=== PATIENT | female | born 1955 | race Caucasian/White ===

== ENCOUNTER 2016-08-08 16:51 | Emergency (ER) | payer OTHER ==
[2016-08-08 16:58] VITALS: BMI 24.0
--- NOTE | 2016-08-08 17:08 | ED PDOC ---
Arrival/HPI - General Time Seen by Provider: 08/08/16 16:58 Historian: Patient - History of Present Illness Narrative History of Present Illness (Text): 08/08/16 19:22 This is a 60yo female [facility] [place] employee who present to ED for puncture wound. States she accidentally punctured her left arm with a syringe, while trying to restrain a patient with a medication. She notes that she is up to date with her TD booster. Denies any other complaint. Past Medical History - Provider Review Nursing Documentation Reviewed: Yes Family/Social History - Physician Review Nursing Documentation Reviewed: Yes Family/Social History: Unknown Family HX Allergies/Home Meds Allergies/Adverse Reactions: Allergies No Known Allergies Allergy (Verified 08/08/16 16:58) Review of Systems - Physician Review All systems were reviewed & negative as marked: Yes - Review of Systems Constitutional: Normal Eyes: Normal ENT: Normal Respiratory: Normal Cardiovascular: Normal Gastrointestinal: Normal Genitourinary Female: Normal Musculoskeletal: Normal Skin: Other (Puncture wound to left forearm) Neurological: Normal Endocrine: Normal Hemo/Lymphatic: Normal Psychiatric: Normal Physical Exam Vital Signs Reviewed: Yes Vital Signs Temp Pulse Resp BP Pulse Ox 08/08/16 17:56 16 98 08/08/16 17:21 98.2 F 86 16 107/74 95 Temperature: Afebrile Blood Pressure: Normal Pulse: Regular Respiratory Rate: Normal Appearance: Positive for: Well-Appearing, Non-Toxic, Comfortable Pain Distress: None Mental Status: Positive for: Alert and Oriented X 3 - Systems Exam Head: Present: Atraumatic, Normocephalic Pupils: Present: PERRL Extroacular Muscles: Present: EOMI Conjunctiva: Present: Normal Mouth: Present: Moist Mucous Membranes Neck: Present: Normal Range of Motion Respiratory/Chest: Present: Clear to Auscultation, Good Air Exchange. No: Respiratory Distress, Accessory Muscle Use Cardiovascular: Present: Regular Rate and Rhythm, Normal S1, S2. No: Murmurs Abdomen: Present: Normal Bowel Sounds. No: Tenderness, Distention, Peritoneal Signs Back: Present: Normal Inspection Upper Extremity: Present: Normal Inspection. No: Cyanosis, Edema Lower Extremity: Present: Normal Inspection. No: Edema Neurological: Present: GCS=15, CN II-XII Intact, Speech Normal Skin: Present: Warm, Dry, Normal Color, Other (Puncture wound noted to left flexor forearm). No: Rashes Psychiatric: Present: Alert, Oriented x 3, Normal Insight, Normal Concentration Medical Decision Making ED Course and Treatment: 08/08/16 19:24 Patient declined prophylactic antibiotic and antiviral medication in ED. States she will f/u with her own PMD if she thinks she needs it. The source blood was collected for HIV and Hepatits profile, per patient. Patient was referred to to employee [facility] ED for any new or worsening symptoms - Lab Interpretations Lab Results: Lab Results 08/08/16 17:13: HIV-1 Ab Rapid Screen Non reactive Disposition/Present on Arrival - Present on Arrival Any Indicators Present on Arrival: No History of DVT/PE: No History of Uncontrolled Diabetes: No Urinary Catheter: No History of Decub. Ulcer: No History Surgical Site Infection Following: None - Disposition Have Diagnosis and Disposition been Completed?: Yes Diagnosis: Puncture wound Disposition: HOME/ ROUTINE Disposition Time: 17:05 Patient Plan: Discharge Condition: STABLE Discharge Instructions (ExitCare): Puncture Wound (ED) Additional Instructions: [facility] Employee Regarding your Work Related Injury, you are instructed to do all of the following by next day: 1. Notify [facility] Employee Health Department of the sustained injury and arrange for any follow-up appointments if needed during the next business day. If the office is closed or no answer is received, please leave a detailed voice message. Message should include your full name, department and manager architecture, date of injury, date of ED visit if applicable. Employee Health can be reached at [phone]. 2. If there is time lost, notify [facility] Human Resources Department of the work related injury the next business day at [phone]. Follow up with employee health tomorrow Keep wound clean and dry Return to ED for any new or worsening symptom Referrals: [facility] at [facility] [Outside] - Follow up with primary
[2016-08-08 17:22] VITALS: BP 107/74; PULSE 86; RESP 16; TEMP 98.2
[2016-08-08 17:57] VITALS: O2SAT 98
== END 2016-08-08 17:57 | disposition home or self-care (01) ==
LOC: ED 16:51
DX: S51.832A Puncture wound without foreign body of left forearm, initial encounter (principal); W46.0XXA Contact with hypodermic needle, initial encounter

== ENCOUNTER 2018-07-08 07:11 | Outpatient (CLI) | payer OTHER | END 2018-07-08 07:12 | disposition home or self-care (01) | LOC: LAB 07:11 ==

== ENCOUNTER 2018-07-23 16:46 | Outpatient (CLI) | payer OTHER | END 2018-07-23 16:47 | disposition home or self-care (01) | LOC: LAB 16:46 ==

== ENCOUNTER 2018-07-25 10:28 | Outpatient (CLI) | payer OTHER | END 2018-07-25 10:29 | disposition home or self-care (01) | LOC: RAD 10:28 ==